=== PATIENT | female | born 1950 | race African-American/Black ===

== ENCOUNTER 2016-07-19 21:15 | Emergency (ER) | payer MEDICARE, MEDICAID ==
[~2016-07-19] VITALS: Ht 157.5 cm; Wt 86.0 kg
[~2016-07-19 21:15] MED LIST: ALBU18HF INH; APIX5TAB PO; ASPI325T4 PO; ATOR20TA9 PO; CELE200C PO; CIPR500T3 PO; DOCU100C50 PO; GABA100C8 PO; LEVO750T26 PO; LISI-466 PO; METH750T2 PO; MORP15TA3 PO; NICO1PAT4 TD; OXYC1TAB8 PO; OXYC1TAB9 PO; PRED20TA PO; PREG25CA PO; SIMV40TA PO; TRAZ50TA18 PO; ZOLP-413 PO; multivitamin PO
[2016-07-19 21:33] VITALS: BP 111/56
== END 2016-07-19 23:29 | disposition home or self-care (01) ==
LOC: ED 23:23
DX: G50.0 Trigeminal neuralgia (principal); I11.0 Hypertensive heart disease with heart failure; I50.9 Heart failure, unspecified; M19.90 Unspecified osteoarthritis, unspecified site; Z86.73 Personal history of transient ischemic attack (TIA), and cerebral infarction without residual deficits; F17.200 Nicotine dependence, unspecified, uncomplicated; Z88.0 Allergy status to penicillin
CPT/HCPCS: 93005; 99283

== ENCOUNTER → 2016-09-04 | Outpatient (CLI) | payer MEDICARE, MEDICAID ==
[~2016-09-04] MED LIST changes: +GABA-826 PO; -GABA100C8 PO
== END | disposition home or self-care (01) ==
LOC: RAD 09:19
PROVIDERS: ATTEND Nurse Practitioner
DX: M25.561 Pain in right knee (principal); Z96.651 Presence of right artificial knee joint

== ENCOUNTER 2016-11-17 00:55 | Inpatient (IN) | payer MEDICARE, MEDICAID ==
[~2016-11-17] VITALS: Ht 160 cm; Wt 85.0 kg
[~2016-11-17 00:55] MED LIST changes: +ASPI325T17 PO; -ASPI325T4 PO; +NICO-486 TD; -NICO1PAT4 TD
[2016-11-17] MEDS ORDERED: SODIUM CHLORIDE FLUSH 10ML SYR IVF ONE (01:00)
[2016-11-17] MEDS ORDERED: SODIUM CHLORIDE 0.9% 1,000ML IVBOLUS ONE (01:00)
[2016-11-17] MEDS ORDERED: ONDANSETRON 2MG/ML, 2ML IVPush ONE (01:00)
[2016-11-17 01:42] LABS: HEMATOCRIT 45.3 % (34.6-47.8); HEMOGLOBIN 15.1 g/dL (11.7-16.4)
[2016-11-17 01:54] LABS: ASPARTATE AMINO TRANSFERASE 164 U/L (15-37); BLOOD UREA NITROGEN 7 mg/dL (7-18)
[2016-11-17 02:01] LABS: IS PT STATUS REG ER OR PRE ER? YES
[2016-11-17 02:18] LABS: DAU SCREEN DISCLAIMER
[2016-11-17] MEDS ORDERED: ONDANSETRON 2MG/ML, 2ML ONE (02:22)
[2016-11-17 02:24] LABS: PATH.CAST-FLAG NOT PRESENT; SPERM-FLAG NOT PRESENT; SRC-FLAG NOT PRESENT; XTAL-FLAG NOT PRESENT; YLC-FLAG NOT PRESENT
[2016-11-17] MEDS ORDERED: AZITHROMYCIN 500 MG in SODIUM CHLORIDE 0.9% 250 ML IVPB ONE (02:30)
[2016-11-17] MEDS ORDERED: CEFTRIAXONE PMX 1GM/50ML 50 ML IVPB ONE (02:30)
[2016-11-17 02:36] LABS: ACETAMINOPHEN < 2 mcg/mL (10-30)
[2016-11-17] MEDS ORDERED: LABETALOL 5MG/ML, 20ML ONE (02:43)
[2016-11-17] MEDS ORDERED: CEFTRIAXONE PMX 1GM/50ML 50 ML ONE (02:43)
[2016-11-17] MEDS ORDERED: LABETALOL 5MG/ML, 20ML IVPush ONE (03:00)
[2016-11-17] MEDS ORDERED: hydrALAzine 20 MG/ML, 1ML IVPush PRN (04:30)
[2016-11-17] MEDS ORDERED: ONDANSETRON 2MG/ML, 2ML IVPush PRN (04:30)
[2016-11-17] MEDS: SODIUM CHLORIDE 0.9% 1,000 ML IV SCH ×2 (05:21→15:38)
[2016-11-17 07:04] VITALS: BP 126/76
[2016-11-17 11:16] VITALS: BP 112/71
[2016-11-17] MEDS ORDERED: POTASSIUM CHLORIDE 20 MEQ, MAGNESIUM SULFATE 1 GM, FOLIC ACID 1 MG, THIAMINE 100 MG, MV... IV SCH (13:30)
[2016-11-17 14:30] VITALS: BP 138/86
[2016-11-17] MEDS: CLINDAMYCIN PMX 600MG/50ML 50 ML IV SCH ×2 (15:57→21:30)
[2016-11-17] MEDS ORDERED: LORazepam 2 MG/ML, 1ML IVPush ONE ×2 (16:30→17:00)
[2016-11-17 20:17] VITALS: BP 140/93
[2016-11-18 02:21] VITALS: BP 131/82
[2016-11-18] MEDS: AZITHROMYCIN 500 MG in SODIUM CHLORIDE 0.9% 250 ML IV SCH (03:59)
[2016-11-18 04:56] LABS: HEMATOCRIT 41.2 % (34.6-47.8); HEMOGLOBIN 14.1 g/dL (11.7-16.4); WHITE BLOOD COUNT 11.4 x10^3/uL (3.4-10)
[2016-11-18 05:27] LABS: ASPARTATE AMINO TRANSFERASE 87 U/L (15-37); BLOOD UREA NITROGEN 6 mg/dL (7-18)
[2016-11-18] MEDS: CLINDAMYCIN PMX 600MG/50ML 50 ML IV SCH ×2 (05:30→16:42)
[2016-11-18] MEDS: SODIUM CHLORIDE 0.9% 1,000 ML IV SCH ×2 (08:00→16:26)
[2016-11-18] MEDS ORDERED: AZITHROMYCIN 500 MG in SODIUM CHLORIDE 0.9% 250 ML IV SCH (13:30)
[2016-11-18 13:40] VITALS: BP 140/76
[2016-11-18] MEDS ORDERED: MIDAZOLAM 1 MG/ML, 5ML ONE (15:26)
[2016-11-18] MEDS ORDERED: FENTANYL PF 100 MCG/2ML ONE (15:26)
[2016-11-18] MEDS ORDERED: FLUMAZENIL 0.1 MG/1 ML, 5ML ONE (15:26)
[2016-11-18] MEDS ORDERED: NALOXONE 1 MG/ML, 2ML ONE (15:26)
[2016-11-18] MEDS ORDERED: POTASSIUM CHLORIDE 20 MEQ, MAGNESIUM SULFATE 1 GM, FOLIC ACID 1 MG, THIAMINE 100 MG, MV... IV SCH (17:00)
[2016-11-18 19:30] VITALS: BP 119/78
[2016-11-18] MEDS: APIXABAN 5 MG TABLET PO SCH (21:19)
[2016-11-19] MEDS: CLINDAMYCIN PMX 600MG/50ML 50 ML IV SCH ×2 (01:34→09:00)
[2016-11-19] MEDS ORDERED: OXYcodone/APAP 10/325MG TABLET PO PRN (03:00)
[2016-11-19] MEDS: AZITHROMYCIN 500 MG in SODIUM CHLORIDE 0.9% 250 ML IV SCH (03:45)
[2016-11-19 03:50] VITALS: BP 115/64
[2016-11-19 07:51] VITALS: BP 111/68
[2016-11-19] MEDS: SODIUM CHLORIDE 0.9% 1,000 ML IV SCH (09:00)
[2016-11-19] MEDS: APIXABAN 5 MG TABLET PO SCH ×2 (09:30→20:33)
[2016-11-19] MEDS: HYDROcodone/APAP 5/325 TABLET PO PRN (17:46)
[2016-11-19 20:05] VITALS: BP 119/72
[2016-11-20 00:22] VITALS: BP 124/44
[2016-11-20 02:16] VITALS: BP 112/70
[2016-11-20] MEDS: HYDROcodone/APAP 5/325 TABLET PO PRN ×2 (02:28→08:41)
[2016-11-20 04:55] LABS: HEMATOCRIT 42.4 % (34.6-47.8); HEMOGLOBIN 14.1 g/dL (11.7-16.4)
[2016-11-20 05:08] LABS: ASPARTATE AMINO TRANSFERASE 81 U/L (15-37); BLOOD UREA NITROGEN 12 mg/dL (7-18)
[2016-11-20 08:23] VITALS: BP 116/74
[2016-11-20] MEDS: AZITHROMYCIN 250 MG TABLET PO SCH (08:29)
[2016-11-20] MEDS: APIXABAN 5 MG TABLET PO SCH ×2 (08:29→20:54)
[2016-11-20] MEDS: THIAMINE 100MG TABLET PO SCH (08:29)
[2016-11-20 13:07] VITALS: BP 128/87
[2016-11-20] MEDS ORDERED: LIDODERM 5% PATCH TD SCH (19:30)
[2016-11-20 20:00] VITALS: BP 117/83
[2016-11-21 02:30] VITALS: BP 140/82
[2016-11-21] MEDS ORDERED: LIDOCAINE/PRILOCAINE CRM W/TEG 5GM TP ONE (04:00)
[2016-11-21 05:42] LABS: HEMATOCRIT 45.6 % (34.6-47.8); HEMOGLOBIN 15.4 g/dL (11.7-16.4); WHITE BLOOD COUNT 11.6 x10^3/uL (3.4-10)
[2016-11-21 06:01] LABS: ASPARTATE AMINO TRANSFERASE 76 U/L (15-37); BLOOD UREA NITROGEN 8 mg/dL (7-18)
[2016-11-21 06:53] VITALS: BP 132/84
[2016-11-21] MEDS ORDERED: ACETAMINOPHEN 650 MG SUPP PR PRN (09:00)
[2016-11-21] MEDS: APIXABAN 5 MG TABLET PO SCH (09:00)
[2016-11-21] MEDS: THIAMINE 100MG TABLET PO SCH (09:35)
[2016-11-21] MEDS: AZITHROMYCIN 250 MG TABLET PO SCH (09:35)
[2016-11-21] MEDS ORDERED: ACETAMINOPHEN 325 MG TABLET PO PRN (11:30)
[2016-11-21 13:22] VITALS: BP 116/77
== END 2016-11-21 16:33 | DRG 91 ==
LOC: MERGE 00:55 → EDBD 00:55 → ED 02:32 → EDIP 02:44 → 4WST 05:24
PROVIDERS: ADMIT Hospitalist; ATTEND Hospitalist
DX: G92 Toxic encephalopathy (principal); J18.1 Lobar pneumonia, unspecified organism; I48.0 Paroxysmal atrial fibrillation; E44.1 Mild protein-calorie malnutrition; K70.10 Alcoholic hepatitis without ascites; I10 Essential (primary) hypertension; E78.5 Hyperlipidemia, unspecified; I65.23 Occlusion and stenosis of bilateral carotid arteries; F51.04 Psychophysiologic insomnia; F17.210 Nicotine dependence, cigarettes, uncomplicated; E66.3 Overweight; F41.0 Panic disorder [episodic paroxysmal anxiety]; G89.4 Chronic pain syndrome; Z96.659 Presence of unspecified artificial knee joint; R74.0 Nonspecific elevation of levels of transaminase and lactic acid dehydrogenase [LDH]; T42.6X5A Adverse effect of other antiepileptic and sedative-hypnotic drugs, initial encounter; T40.2X5A Adverse effect of other opioids, initial encounter; Y92.89 Other specified places as the place of occurrence of the external cause; Z72.89 Other problems related to lifestyle; I25.2 Old myocardial infarction; Z79.01 Long term (current) use of anticoagulants; Z82.49 Family history of ischemic heart disease and other diseases of the circulatory system; Z83.3 Family history of diabetes mellitus; Z86.14 Personal history of Methicillin resistant Staphylococcus aureus infection; Z86.73 Personal history of transient ischemic attack (TIA), and cerebral infarction without residual deficits; Z68.33 Body mass index [BMI] 33.0-33.9, adult
CPT/HCPCS: 36415; 70450; 70496; 70498; 70551; 71010; 80047; 80053; 80307; 80329; 81001; 82140; 82962; 83036; 83735; 84100; 84443; 84484; 85025; 85610; 85730; 87040; 93005; 93306; 95819; 96365; 96368; 96375; J0456; J0696; J2250; J2405; J3010; J3411; J3475; J3480; J7042; 92523-GN; G0479; G0480; J2060; J2310; J7030; J7050

== ENCOUNTER 2020-10-10 18:39 | Emergency (ER) | payer MEDICAID, MEDICARE ==
[~2020-10-10] VITALS: Ht 157.5 cm; Wt 90.8 kg
[~2020-10-10 18:39] MED LIST changes: +ATOR20TA37 PO; -ATOR20TA9 PO; -CIPR500T3 PO; +CIPR500T4 PO; +METH-640 PO; -METH750T2 PO; +MORP-29 PO; -MORP15TA3 PO; +OXYC1TAB18 PO; -OXYC1TAB9 PO; -TRAZ50TA18 PO; +TRAZ50TA66 PO
[2020-10-10 19:26] LABS: BASOPHILS % (AUTO) 1 % (0-1); EOSINOPHILS % (AUTO) 3 % (1-7); LYMPHOCYTES % (AUTO) 30 % (22-44); MEAN CORPUSCULAR HEMOGLOBIN 31.5 pg (27.0-34.8); MEAN CORPUSCULAR HGB CONC 33.4 g/dL (32.4-35.8); MEAN PLATELET VOLUME 8.6 fL (7.4-10.4); MONOCYTES % (AUTO) 5 % (2-9); NEUTROPHILS % (AUTO) 61 % (42-75); PLATELET COUNT 258 x10^3/uL (130-400); RED BLOOD COUNT 4.55 x10^6/uL (3.82-5.3); RED CELL DISTRIBUTION WIDTH 14.6 % (9.6-15.2)
[2020-10-10] MEDS ORDERED: ACETAMINOPHEN 500 MG TABLET ONE (19:30)
[2020-10-10] MEDS ORDERED: ACETAMINOPHEN 500 MG TABLET PO ONE (19:30)
[2020-10-10] MEDS ORDERED: ASPIRIN 81 MG TABLET CHEW ONE (19:30)
[2020-10-10] MEDS ORDERED: ASPIRIN 325 MG TABLET PO ONE (19:30)
[2020-10-10 19:34] LABS: ALANINE AMINOTRANSFERASE 17 U/L (12-78); ALBUMIN 3.2 g/dL (3.4-5.0); ANION GAP 7 mmol/L (5-15); CALCIUM 9.6 mg/dL (8.5-10.1); CHLORIDE 110 mmol/L (98-107); CREATININE 0.81 mg/dL (0.55-1.02)
[2020-10-10 19:39] LABS: ALKALINE PHOSPHATASE 122 U/L (45-117); BILIRUBIN,TOTAL 0.2 mg/dL (0.2-1.0); TOTAL PROTEIN 8.7 g/dL (6.4-8.2); TROPONIN I < 0.015 ng/mL (0.000-0.045)
--- NOTE | 2020-10-10 20:01 | NUR ---
LEFT CHEST HAVING SHOOTING PAIN. STARTED ABOUT 30 MIN AGO. ALSO HAVING SHOOTING PAIN GOING UP RIGHT FOOT AND ARM. STATED BODY FEELS WEAK AND WEIRD
--- NOTE | 2020-10-10 21:20 | NUR ---
FAMILY WANTING TO SEE DR. HUYNH FOR UPDATE ON PLAN OF CARE. AMINA DENNIS NOTIFIED AND WAITING FOR MD TO GO TO BEDSIDE
--- NOTE | 2020-10-10 22:04 | NUR ---
DR. HUYNH WENT TO PATIENTS ROOM TO EXPLAIN PLAN OF CARE. PATIENT UPSET AND SAID THAT SHE WANTS TO LEAVE BECAUSE IT TOOK TOO LONG. AMINA DENNIS TO DISCHARGE PATIENT
[2020-10-10 22:27] VITALS: BP 99/52
== END 2020-10-10 22:30 | disposition home or self-care (01) ==
LOC: ED 21:19
DX: R07.89 Other chest pain (principal); I10 Essential (primary) hypertension; I48.0 Paroxysmal atrial fibrillation; Z86.73 Personal history of transient ischemic attack (TIA), and cerebral infarction without residual deficits
CPT/HCPCS: 36415; 71045; 80053; 83880; 84484; 85025; 93005; 99285